=== PATIENT | male | born 1980 | race Caucasian/White ===

== ENCOUNTER 2024-03-29 06:29 | Day surgery (SDC) | payer OTHER ==
[2024-03-29] MEDS: CEFAZOLIN 2 GM/100 ML NaCl 2 GM/100 ML IVPB IV SCH (06:53)
[2024-03-29] MEDS: celeBREX 100 MG PO ONE (06:53)
[2024-03-29] MEDS: Lactated Ringers 1,000 ML IV SCH (06:53)
[2024-03-29] MEDS: Decadron 4 MG PO ONE (06:54)
[2024-03-29] MEDS: NEURONTIN PO ONE (06:54)
[2024-03-29] MEDS: TYLENOL EXTRA STRENGTH 500 MG PO ONE (06:54)
[2024-03-29 07:12] VITALS: RESP 18; O2SAT 100
[2024-03-29] MEDS ORDERED: Zofran 4 MG/2 ML VIAL ONE (08:19)
[2024-03-29] MEDS ORDERED: SUBLIMAZE 100 MCG/2 ML ONE (08:19)
[2024-03-29] MEDS ORDERED: DIPRIVAN 200 MG/20 ML IV ONE (08:19)
[2024-03-29] MEDS ORDERED: Xylocaine-Mpf 2% 5 Ml Vial ONE (08:19)
[2024-03-29] MEDS ORDERED: Decadron 4 MG INJ ONE (08:19)
[2024-03-29] MEDS ORDERED: Versed 2 MG/2 ML Injection ONE (08:19)
[2024-03-29] MEDS ORDERED: MARCAINE 0.25% PF/ EPI 1:200,000 ONE (09:07)
[2024-03-29] MEDS: Oxy-IR 5 MG PO PRN (10:22)
[2024-03-29 10:55] VITALS: BP 128/69; PULSE 79; TEMP 97.7
--- NOTE | 2024-03-31 08:45 | OP ---
SURGERY DATE/TIME: 03/29/2024 [id number] PREOPERATIVE DIAGNOSES: 1) Right knee pain. 2) Right knee medial meniscus tear. POSTOPERATIVE DIAGNOSES: 1) Right knee medial meniscus tear. 2) Right knee lateral meniscus tear. 3) Synovial cyst. PROCEDURE: 1) Right knee diagnostic arthroscopy. 2) Partial lateral and medial meniscectomy. 3) Debridement of soft tissue cyst. SURGEON: Rick Grey MD INDICATIONS: This patient has been followed in the office for complaints of medial-sided right knee pain aggravated by twisting maneuvers. MRI confirmed tear of the medial meniscus. Due to symptoms and the size of the tear seen on MRI, we recommended surgical management. Consent was obtained. DESCRIPTION OF PROCEDURE AND FINDINGS: Patient was seen preoperatively. The operative limb and plan were reviewed with him. Consent was obtained. He was given IV antibiotics, Ancef 2 grams. He was then taken to the operating room, placed under general anesthesia. He was kept in supine position. The foot of the bed was flexed 90 degrees at the knee. A thigh tourniquet was applied. His leg was secured in a thigh-holding device. Sterile prep and drape were performed. We then exsanguinated the lower limb up to the thigh and inflated the tourniquet to 300 mmHg. The lateral portal was established and the arthroscope was advanced into the fully straightened knee and examination was commenced. Suprapatellar pouch was normal. Patellofemoral articular surfaces were within normal limits. Medial and lateral gutters were examined and no loose bodies were seen. The medial joint space was entered. Chondral surfaces were well preserved. A complex tear of the posterior horn medial meniscus was identified. While on the medial side, we created a medial portal under direct visualization utilizing needle localization. Once the portal was created we inserted a probe. We were able to probe the medial meniscus and identified several large flap tears, one that was folded underneath the medial meniscus and one tore loose from the root and was flipped toward the notch. We proceeded to examine the lateral joint space in [id number] position and noted a tear at the root, producing a 5 to 7 mm flap but the remainder of the meniscus was stable and intact. We inserted a motorized shaver. On the medial size of the knee, we debrided the torn fragments back to a stable rim. We removed the shaver and probed the rim and refined the meniscectomy with touch-up utilizing the shaver to smooth off rough edges. Once this was completed, we repeated probing the meniscus and found it to be stable with no further evidence of tearing. We then went to the lateral side in [id number] position and shaved the root area of the lateral meniscus to remove the small flap. We then examined the intercondylar notch and ACL. There was a thick anterior fat pad but we were able to look behind and we noted a small synovial cyst at the anterior attachment of the lateral meniscus. We used the motorized shaver to debride this. The procedure was then terminated and the excess fluid drained from the knee. We closed the portal sites with nylon suture and then injected 20 mL of 0.25% Marcaine with epinephrine, approximately 4 mL were injected around each portal site and the remaining 12 mL were injected into the joint. Patient tolerated the procedure well.
== END 2024-03-29 11:05 | disposition home or self-care (01) ==
LOC: SDC 06:29 → EDSTATUS 15:40
PROVIDERS: ATTEND Orthopaedic Surgery
DX: S83.241A Other tear of medial meniscus, current injury, right knee, initial encounter (principal); M25.561 Pain in right knee; M71.38 Other bursal cyst, other site
CPT/HCPCS: J0690; J1100; J2250; J2405; J2704; J3010; A9270-GY